=== PATIENT | female | born 1955 | race Two or more races ===

== ENCOUNTER 2025-06-04 08:00 | Day surgery (SDC) | payer MEDICARE, MEDICAID, SELFPAY ==
[2025-06-04] VITALS (11 sets, daily range): BP systolic 123–183; BP diastolic 71–97; PULSE 66–75; RESP 12–20; TEMP 36.7–37.3; O2SAT 92–100; BMI 19.7
[2025-06-04] MEDS: SODIUM CHLORIDE 0.9% 500 ML 500 ML 20 ML IV ×2 (09:59→10:45)
[2025-06-04] MEDS: fentaNYL CIT INJ 50 mCg/ML AMP 2ML (ASD USE ONLY) IVP (10:06)
[2025-06-04] MEDS: MIDAZOLAM INJ 1 MG/ML VIAL 2 ML (ASD USE ONLY) 2 MG IVP (10:06)
== END 2025-06-04 11:10 | disposition home or self-care (01) ==
PROVIDERS: PCP Family Medicine; Referring Provider Specialist; Visit Provider Specialist
PROC: 0DBE8ZX Excision of Large Intestine, Via Natural or Artificial Opening Endoscopic, Diagnostic (ICD-10-PCS; CPT 45380; principal; 2025-06-04 08:30)
DX: Z12.11 Encounter for screening for malignant neoplasm of colon (principal); K64.9 Unspecified hemorrhoids
CPT/HCPCS: G0121; A4649; J1200; J2250; J3010; J7999

== ENCOUNTER → 2025-08-29 | Outpatient (CLI) | payer MEDICARE, MEDICAID, SELFPAY ==
--- NOTE | 2025-08-29 09:15 | XR_ITS ---
Examination: Abdomen sonogram, complete Date and time of exam: August 29, 2025, 0925 hours INDICATIONS: Elevated liver function tests on laboratory examination 6 months ago. Technique: Multiple real-time grayscale transabdominal sonographic images of the abdomen have been obtained. Findings: Normal gallbladder Normal common bile duct 0.4 cm Pancreatic head 1.6 cm Aorta not enlarged Small benign liver cyst, liver 15 cm Normal hepatopetal portal venous flow Patent IVC Right kidney 9.3 cm renal cortex 1.6 cm Left kidney 9.4 cm renal cortex 1.4 cm Mild renal scar formation Spleen 8.6 cm IMPRESSION: Normal gallbladder Normal common bile duct Liver normal size no solid liver lesions
== END | disposition home or self-care (01) ==
LOC: CDIM 09:08
PROVIDERS: PCP Internal Medicine; Referring Provider Specialist; Visit Provider Specialist
DX: R94.5 Abnormal results of liver function studies (principal); K80.20 Calculus of gallbladder without cholecystitis without obstruction
CPT/HCPCS: 76700